=== PATIENT | female | born 1960 | race Caucasian/White ===

== ENCOUNTER 2024-07-07 14:55 | Emergency (ER) | payer OTHER, SELFPAY ==
[2024-07-07 15:13] VITALS: BP 170/89; PULSE 93; RESP 16; TEMP 36.6; O2SAT 98; BMI 27.1
--- NOTE | 2024-07-07 16:57 | ED_ITS ---
HPI - General Adult General Date Seen: 07/07/24 Chief complaint: Hypertension Stated complaint: high blood pressure Time Seen by Provider: 07/07/24 16:27 Source: patient Mode of arrival: ambulatory Limitations: no limitations History of Present Illness HPI narrative: Patient is a 64-year-old female presenting to emergency department for hypertension. She states she has noticed today her blood pressure has been more elevated than normal. Her blood pressure is usually well controlled but she was recently taken off losartan because she was says it was affecting her vision. Her vision quickly improved and is now on spironolactone and hydrochlorothiazide. Does state though started yesterday she is beginning to have higher blood pressures. She has checked her blood pressure now 18 times today and it is still elevated in the 150s range systolic. She called her primary care provider and was able to get an appointment today so came to the emergency department. She has also noticed her he heart rate has been elevated and she feels like she is able to feel her heart beat more rapidly. Has also noticed increased and tinnitus. 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 Denies fevers, chills, chest pain, shortness of breath, lightheadedness, dizziness, weakness, numbness, abdominal pain. No other concerns noted. Related Data Home Medications ?Medication ?Instructions ?Recorded ?Confirmed chlorpheniramine maleate 4 mg 4 mg PO Q12H 07/07/24 07/07/24 tablet (Allergy (chlorpheniramine)) famotidine 40 mg tablet 40 mg PO DAILY 07/07/24 07/07/24 hydrochlorothiazide 25 mg tablet 25 mg PO DAILY 07/07/24 07/07/24 magnesium aspart,citrate,oxide PO 07/07/24 spironolactone 50 mg tablet 50 mg PO DAILY 07/07/24 07/07/24 (Aldactone) Allergies Allergy/AdvReac Type Severity Reaction Status Date / Time ketorolac (From Toradol) Allergy Unknown Verified 07/07/24 15:23 grass pollen Allergy Verified 07/07/24 15:23 Latex, Natural Rubber AdvReac Mild rash Verified 07/07/24 15:23 Review of Systems Status of ROS: Reports: 10 or more systems reviewed and unremarkable except as noted in History and below PFSH PFSH Social History Smoking Status: Never smoker How often do you have a drink containing alcohol: 2-3 times a week AUDIT-C Alcohol total score: 3 Non-prescribed substance use: denies use Exam Narrative: Exam Narrative: Const: Well-nourished, Well-developed, anxious Eyes: PERRL, no conjunctival injection, and symmetrical lids HENT: Atraumatic external nose and ears. Moist mucous membranes. Neck: Symmetric, trachea midline, No thyromegaly. CVS: RRR, No murmurs or gallops. Peripheral pulses 2+ and equal in all extremities, no carotid bruits heard RESP: Unlabored respiratory effort. Clear to auscultation bilaterally. GI: Nontender/Nondistended, No rebound or guarding. MSK:Extremities w/o deformity, Normal Active ROM Skin: Warm, Dry. No rashes or lesions. Neuro: Normal Muscle tone, No focal neurological deficits. Psych: Awake, Alert, & Oriented x3. Appropriate mood and affect. Const: Vital Signs, click to edit/add: Vital Signs - 24 hr 07/07/24 15:13 07/07/24 17:44 07/07/24 17:45 Temperature 97.9 F Pulse Rate 88 Pulse Rate [Pulse Oximeter] 93 Respiratory Rate 16 Blood Pressure 157/95 H 152/91 H Blood Pressure [Le ft Upper Arm] 170/89 H Pulse Oximetry 98 98 Oxygen Delivery Me thod Room Air 07/07/24 17:46 Temperature Pulse Rate 83 Pulse Rate [Pulse Oximeter] Respiratory Rate Blood Pressure Blood Pressure [Le ft Upper Arm] Pulse Oximetry 98 Oxygen Delivery Me thod Course Vital Signs Vital signs: Initial Vital Signs Temperature 97.9 F 07/07/24 15:13 Temperature Source Temporal Artery Scan 07/07/24 15:13 Pulse Rate 93 07/07/24 15:13 Respiratory Rate 16 07/07/24 15:13 Blood Pressure 170/89 H 07/07/24 15:13 Blood Pressure Mean 116 H 07/07/24 15:13 Blood Pressure Position Sitting 07/07/24 15:13 Pulse Oximetry 98 07/07/24 15:13 Oxygen Delivery Method Room Air 07/07/24 15:13 Vital Signs Temperature 97.9 F 07/07/24 15:13 Pulse Rate 93 07/07/24 15:13 Respiratory Rate 16 07/07/24 15:13 Blood Pressure 170/89 H 07/07/24 15:13 Pulse Oximetry 98 07/07/24 15:13 Oxygen Delivery Method Room Air 07/07/24 15:13 Temperature 97.9 F 07/07/24 15:13 Pulse Rate 83 07/07/24 17:46 Respiratory Rate 16 07/07/24 15:13 Blood Pressure 152/91 H 07/07/24 17:45 Pulse Oximetry 98 07/07/24 17:46 Oxygen Delivery Method Room Air 07/07/24 15:13 Medical Decision Making MDM Narrative Medical decision making narrative: Patient is a 64-year-old female presenting to the emergency department for hypertension. She is very concerned about blood pressure and her pulse. Based on my conversation with her she seems to be very anxious which were both likely causing her increased hypertension and tachycardia. Currently is not tachycardic. Since she is stating she is having palpitations I will do EKG, point of care troponin, CBC, BMP. EKG shows no concerning findings. Troponin and basic lab work on shows no concerning findings. Her blood pressure has been stable throughout her time emergency department and her symptoms have not changed. Since she is otherwise doing well patient is safe for discharge. I informed her to follow up with her primary care provider to adjust medications. She is agreeable to this plan. Lab Data Labs: Lab Results 07/07/24 07/07/24 Range/Units 17:00 17:05 WBC 8.28 (4.50-11.00) K/uL RBC 4.21 (4.00-5.20) m/uL Hgb 12.1 (12.0-16.0) gm/dL Hct 38.3 (33.0-51.0) % MCV 91 (80-100) fL MCH 29 (26-34) pg MCHC 32 (32-36) gm/dL RDW Coeff of Dar 13.0 (11.5-15.5) % Plt Count 285 (140-440) K/uL Neut % (Auto) 66.1 (42.0-72.0) % Lymph % (Auto) 25.0 (20-44) % Maries % (Auto) 7.2 (0.0-11.0) % Eos % (Auto) 1.1 (0.0-7.0) % Baso % (Auto) 0.5 (0.0-3.0) % Neut # (Auto) 5.47 (1.7-7.0) K/uL Lymph # (Auto) 2.07 (0.90-2.90) K/uL Maries # (Auto) 0.60 (0.00-0.90) K/UL Eos # (Auto) 0.09 (0.00-0.50) K/uL Baso # (Auto) 0.04 (0.00-0.30) K/uL Abs Immat Gran (auto) 0.01 (0.00-0.30) K/uL Imm/Tot Granulo (auto) 0.1 % Sodium 135 (135-149) mmol/L Potassium 4.1 (3.6-5.1) mmol/L Chloride 101 (96-114) mmol/L Carbon Dioxide 25 (20-32) mmol/L Anion Gap 9 (7-15) mEq/L BUN 21 (7-30) mg/dL Creatinine 0.8 (0.5-1.5) mg/dL Estimated Creat Clear 50.47 Estimated GFR 82 ml/min Glucose 110 (60-115) mg/dL Calcium 10.0 (8.4-10.6) mg/dL POC Troponin I 0.01 (0.01-0.04) ng/ml ECG Data Attestation: I personally reviewed and interpreted this ECG as follows: Prior ECG tracings: not available for review Interpretation: Normal sinus rhythm with the rate of 80 beats per minute, normal intervals, normal axis, no ST or T-wave abnormalities Discharge Plan Discharge Clinical Impression: Hypertension Qualifiers: Hypertension type: unspecified Qualified Code(s): I10 - Essential (primary) hypertension Patient Disposition: Home, Self-Care Condition: Stable Instructions: Hypertension (ED) Additional Instructions: Make sure to speak to your primary care provider about adjusting your blood pressure medication. Return to emergency department for new or worsening symptoms. Prescriptions: No Action hydrochlorothiazide 25 mg tablet 25 mg PO DAILY famotidine 40 mg tablet 40 mg PO DAILY chlorpheniramine maleate [Allergy (chlorpheniramine)] 4 mg tablet 4 mg PO Q12H spironolactone [Aldactone] 50 mg tablet 50 mg PO DAILY magnesium aspart,citrate,oxide PO Follow Up/Referrals: Provider,Not a Local [Primary Care Provider] - Stand Alone Forms: [employer] Info Instructions
[2024-07-07 17:29] LABS: Basophils Absolute Auto 0.04 K/uL (0.00-0.30); Basophils Percent Auto 0.5 % (0.0-3.0); Eosinophils Absolute Auto 0.09 K/uL (0.00-0.50); Eosinophils Percent Auto 1.1 % (0.0-7.0); Hematocrit 38.3 % (33.0-51.0); Hemoglobin* 12.1 gm/dL (12.0-16.0); Immature Granulocytes Abs Auto 0.01 K/uL (0.00-0.30); Immature Granulocytes Pct Auto 0.1 %; Lymphocytes Absolute Auto 2.07 K/uL (0.90-2.90); Mean Corpuscular HGB Conc 32 gm/dL (32-36); Mean Corpuscular Hemoglobin 29 pg (26-34); Mean Corpuscular Volume 91 fL (80-100); Monocytes Percent Auto 7.2 % (0.0-11.0); Neutrophils Absolute Auto 5.47 K/uL (1.7-7.0); Neutrophils Percent Auto 66.1 % (42.0-72.0); Platelet Count* 285 K/uL (140-440); Red Blood Count 4.21 m/uL (4.00-5.20); White Blood Count* 8.28 K/uL (4.50-11.00)
[2024-07-07 17:44] VITALS: BP 157/95
[2024-07-07 17:45] VITALS: BP 152/91; PULSE 88; O2SAT 98
[2024-07-07 17:45] LABS: Chloride* 101 mmol/L (96-114); Potassium* 4.1 mmol/L (3.6-5.1); Sodium* 135 mmol/L (135-149)
[2024-07-07 17:46] VITALS: PULSE 83; O2SAT 98
[2024-07-07 17:48] LABS: Anion Gap 9 mEq/L (7-15); Blood Urea Nitrogen* 21 mg/dL (7-30); Carbon Dioxide* 25 mmol/L (20-32); Creatinine* 0.8 mg/dL (0.5-1.5); Est. Creatinine Clearance* 50.47; Estimated Glomerular Filt Rate 82 ml/min; Glucose* 110 mg/dL (60-115)
[2024-07-07 17:52] LABS: Troponin, Point-of-Care* 0.01 ng/ml (0.01-0.04)
[2024-07-07 17:53] LABS: Slide Review Reflex No
[2024-07-07 18:00] VITALS: PULSE 87; O2SAT 97
[2024-07-07 18:01] VITALS: BP 148/91; PULSE 95; O2SAT 95
== END 2024-07-07 18:30 | disposition home or self-care (01) ==
PROVIDERS: Emergency Provider Student in an Organized Health Care Education/Training Program
DX: I10 Essential (primary) hypertension (principal)
CPT/HCPCS: 36415; 80048; 84484; 85025; 93005; 99283; 99284